=== PATIENT | female | born 1955 | race Caucasian/White ===

== ENCOUNTER 2019-11-09 11:00 | Inpatient (IN) | payer BC ==
[~2019-11-09] VITALS: Ht 170.2 cm; Wt 85.3 kg
[2019-11-11] MEDS ORDERED: LACTATED RINGERS 1,000 ML IV SCH (09:59)
[2019-11-11] MEDS ORDERED: METH500T7 PO (10:03)
[2019-11-11] MEDS ORDERED: TRAZ50TA66 PO (10:03)
[2019-11-11] MEDS ORDERED: BUPR300T94 PO (10:03)
[2019-11-11] MEDS ORDERED: HYDR-3245 PO (10:03)
[2019-11-11] MEDS ORDERED: DULO30CA2 PO (10:03)
[2019-11-11] MEDS ORDERED: ZOLP10TA PO (10:03)
[2019-11-11] MEDS ORDERED: BUPIVACAINE/PF 0.25% ONE (10:14)
[2019-11-11] MEDS ORDERED: VANCOMYCIN 1,000 MG ONE (10:15)
[2019-11-11] MEDS ORDERED: LIDOCAINE/PF 0.5% ,50ML ONE (10:15)
[2019-11-11] MEDS ORDERED: THROMBIN 5,000 UNIT VIAL TP ONE (10:15)
[2019-11-11] MEDS ORDERED: EPINEPHRINE 1 MG/ML, 1ML ONE (10:15)
[2019-11-11 10:26] VITALS: BP 124/72
[2019-11-11] MEDS ORDERED: GABAPENTIN 300 MG CAPSULE ONE ×2 (10:39)
[2019-11-11] MEDS ORDERED: ACETAMINOPHEN 500 MG TABLET ONE ×2 (10:39)
[2019-11-11] MEDS ORDERED: MIDAZOLAM 1 MG/ML, 2ML ONE (10:43)
[2019-11-11] MEDS ORDERED: ACETAMINOPHEN 325 MG TABLET PO PRN (11:30)
[2019-11-11] MEDS ORDERED: MEPERIDINE/PF 25MG/0.5ML IVPush PRN (11:30)
[2019-11-11] MEDS ORDERED: PROMETHAZINE 25 MG/ML, 1ML IV PRN (11:30)
[2019-11-11] MEDS ORDERED: hydrALAzine 20 MG/ML, 1ML IV PRN (11:30)
[2019-11-11] MEDS ORDERED: ALBUTEROL SULFATE 2.5 MG/3 ML NPPB PRN (11:30)
[2019-11-11] MEDS ORDERED: LABETALOL 5MG/ML, 20ML IV PRN (11:30)
[2019-11-11] MEDS ORDERED: DIAZEPAM 5 MG/ML, 2ML IVPush PRN (11:30)
[2019-11-11] MEDS ORDERED: KETOROLAC 30 MG/1 ML IV PRN (11:30)
[2019-11-11] MEDS ORDERED: OXYcodone 5 MG/5 ML ORAL.SOL UDC PO PRN (11:30)
[2019-11-11] MEDS ORDERED: VANCOMYCIN 1,000 MG IM ONE (12:35)
[2019-11-11] MEDS ORDERED: FENTANYL PF 250 MCG/5ML ONE (13:10)
[2019-11-11] MEDS ORDERED: NEOSTIGMINE 1 MG/ML, 10ML ONE (14:04)
[2019-11-11] MEDS ORDERED: CEFAZOLIN 1,000 MG ONE (14:04)
[2019-11-11] MEDS ORDERED: ROCURONIUM 10MG/ML,5ML ONE ×2 (14:04)
[2019-11-11] MEDS ORDERED: GLYCOPYRROLATE 0.2MG/1ML, 5ML ONE (14:04)
[2019-11-11] MEDS ORDERED: SUCCINYLCHOLINE 20 MG/ML, 10ML ONE (14:04)
[2019-11-11] MEDS ORDERED: ONDANSETRON 2MG/ML, 2ML ONE (14:04)
[2019-11-11] MEDS ORDERED: PROPOFOL 10 MG/ML, 20ML ONE (14:04)
[2019-11-11] MEDS ORDERED: DEXAMETHASONE 4 MG/ML, 1ML ONE ×2 (14:04)
[2019-11-11] MEDS ORDERED: SUGAMMADEX 200 MG/2 ML IVPush ONE (14:04)
[2019-11-11] MEDS ORDERED: FENTANYL PF 100 MCG/2ML ONE ×2 (14:18→14:41)
[2019-11-11] MEDS ORDERED: HYDROmorphone 1 MG/ML, 1ML INJ ONE (14:41)
[2019-11-11] MEDS ORDERED: OXYcodone 5 MG/5 ML ORAL.SOL UDC ONE (14:41)
[2019-11-11] MEDS: FENTANYL PF 100 MCG/2ML IV PRN ×2 (14:42→14:47)
[2019-11-11] MEDS: HYDROmorphone 2 MG/ML, 1ML IVPush PRN ×2 (14:55→15:00)
[2019-11-11 16:30] VITALS: BP 98/50
[2019-11-11] MEDS ORDERED: DIPHENHYDRAMINE 50 MG/ML, 1ML IM PRN (17:00)
[2019-11-11] MEDS ORDERED: PROMETHAZINE 25 MG/ML, 1ML IM PRN (17:00)
[2019-11-11] MEDS ORDERED: METHOCARBAMOL 1,000 MG in DEXTROSE 5% 100 ML IV ONE (17:00)
[2019-11-11] MEDS ORDERED: METHOCARBAMOL 750 MG TABLET PO SCH (17:00)
[2019-11-11] MEDS ORDERED: DIPHENHYDRAMINE 50 MG/ML, 1ML IVPush PRN (17:00)
[2019-11-11] MEDS ORDERED: METHOCARBAMOL 750 MG in DEXTROSE 5% 100 ML IV SCH (17:00)
[2019-11-11] MEDS ORDERED: MAGNESIUM HYDROXIDE 8%, 30ML UDC PO PRN (17:00)
[2019-11-11] MEDS ORDERED: ONDANSETRON 2MG/ML, 2ML IV PRN (17:00)
[2019-11-11] MEDS ORDERED: HYDROcodone/APAP 5/325 TABLET PO PRN (17:00)
[2019-11-11] MEDS ORDERED: BISACODYL 10 MG SUPP PR PRN (17:00)
[2019-11-11] MEDS ORDERED: DIPHENHYDRAMINE 25 MG CAPSULE PO PRN (17:00)
[2019-11-11] MEDS ORDERED: CEFAZOLIN PMX 1GM/50ML 50 ML IVPB SCH (18:00)
[2019-11-11] MEDS: D5%-0.9% NACL+KCL 20MEQ 1,000 ML IV SCH (18:11)
[2019-11-11 18:21] VITALS: BP 93/56
[2019-11-11] MEDS: HYDROcodone/APAP 10/325 MG TABLET PO PRN (20:12)
[2019-11-11] MEDS: TRAZODONE 100MG TABLET PO SCH (22:43)
[2019-11-11] MEDS: ZOLPIDEM 10MG TABLET PO PRN (22:44)
[2019-11-11] MEDS: CEFAZOLIN PMX 1GM/50ML 50 ML IVPB SCH (22:44)
[2019-11-11] MEDS: SENNA/DOCUSATE TABLET PO SCH (22:44)
[2019-11-11] MEDS: BUPROPION SR 150 MG TABLET PO SCH (22:46)
[2019-11-12 00:04] VITALS: BP 94/56
[2019-11-12] MEDS: HYDROcodone/APAP 10/325 MG TABLET PO PRN ×3 (00:50→09:48)
[2019-11-12] MEDS: METHOCARBAMOL 750 MG in DEXTROSE 5% 100 ML IV SCH ×3 (02:30→18:12)
[2019-11-12 04:20] VITALS: BP 93/56
[2019-11-12 05:40] LABS: BASOPHILS # (AUTO) 0.03 x10^3/uL (0-0.1); BASOPHILS % (AUTO) 0 % (0-1); EOSINOPHILS % (AUTO) 0 % (1-7); LYMPHOCYTES # (AUTO) 2.15 x10^3/uL (1-3.4); LYMPHOCYTES % (AUTO) 20 % (22-44); MD NO; MEAN CORPUSCULAR HEMOGLOBIN 25.9 pg (27.0-34.8); MEAN CORPUSCULAR HGB CONC 31.1 g/dL (32.4-35.8); MEAN CORPUSCULAR VOLUME 83.3 fL (80-100); MEAN PLATELET VOLUME 7.7 fL (7.4-10.4); MONOCYTES # (AUTO) 0.86 x10^3/uL (0.2-0.8); MONOCYTES % (AUTO) 8 % (2-9); NEUTROPHILS # (AUTO) 7.51 x10^3/uL (1.8-6.8); NEUTROPHILS % (AUTO) 71 % (42-75); PLATELET COUNT 292 x10^3/uL (130-400); RED BLOOD COUNT 2.96 x10^6/uL (3.82-5.3); RED CELL DISTRIBUTION WIDTH 16.5 % (9.6-15.2)
[2019-11-12] MEDS: CEFAZOLIN PMX 1GM/50ML 50 ML IVPB SCH (05:42)
[2019-11-12 05:45] LABS: ANION GAP 5 mmol/L (5-15); CALCIUM 7.2 mg/dL (8.5-10.1); CHLORIDE 114 mmol/L (98-107); CREATININE 0.71 mg/dL (0.55-1.02)
[2019-11-12 08:59] VITALS: BP 112/65
[2019-11-12] MEDS: DULOXETINE 30 MG CAPSULE.DR PO SCH (09:13)
[2019-11-12] MEDS: BUPROPION SR 150 MG TABLET PO SCH ×3 (09:13→21:44)
[2019-11-12] MEDS: MORPHINE SULFATE 4 MG/ML, 1ML IVPush PRN ×6 (09:16→23:28)
[2019-11-12] MEDS: SENNA/DOCUSATE TABLET PO SCH ×2 (09:16→21:44)
[2019-11-12] MEDS: D5%-0.9% NACL+KCL 20MEQ 1,000 ML IV SCH ×2 (09:17→20:00)
[2019-11-12] MEDS: OXYcodone IR 5MG TABLET PO PRN ×3 (13:25→21:44)
[2019-11-12 15:23] VITALS: BP 95/54
[2019-11-12] MEDS: CEPHALEXIN 500 MG CAPSULE PO SCH ×2 (15:28→21:44)
[2019-11-12 21:59] VITALS: BP 112/65
[2019-11-13] MEDS: TRAZODONE 100MG TABLET PO SCH ×2 (00:12→22:31)
[2019-11-13] MEDS: ZOLPIDEM 10MG TABLET PO PRN ×2 (00:12→22:30)
[2019-11-13] MEDS: METHOCARBAMOL 750 MG in DEXTROSE 5% 100 ML IV SCH ×3 (03:08→18:06)
[2019-11-13] MEDS: OXYcodone IR 5MG TABLET PO PRN ×2 (03:08→08:07)
[2019-11-13 03:19] VITALS: BP 93/52
[2019-11-13] MEDS: D5%-0.9% NACL+KCL 20MEQ 1,000 ML IV SCH ×2 (06:00→16:00)
[2019-11-13 06:17] LABS: BASOPHILS % (AUTO) 0 % (0-1); EOSINOPHILS # (AUTO) 0.11 x10^3/uL (0-0.4); EOSINOPHILS % (AUTO) 1 % (1-7); LYMPHOCYTES # (AUTO) 1.28 x10^3/uL (1-3.4); LYMPHOCYTES % (AUTO) 13 % (22-44); MD NO; MEAN CORPUSCULAR HEMOGLOBIN 26.1 pg (27.0-34.8); MEAN CORPUSCULAR HGB CONC 31.6 g/dL (32.4-35.8); MEAN CORPUSCULAR VOLUME 82.5 fL (80-100); MONOCYTES # (AUTO) 0.91 x10^3/uL (0.2-0.8); MONOCYTES % (AUTO) 9 % (2-9); NEUTROPHILS # (AUTO) 7.44 x10^3/uL (1.8-6.8); NEUTROPHILS % (AUTO) 76 % (42-75); PLATELET COUNT 287 x10^3/uL (130-400); RED BLOOD COUNT 3.01 x10^6/uL (3.82-5.3); RED CELL DISTRIBUTION WIDTH 16.6 % (9.6-15.2)
[2019-11-13 06:27] LABS: ANION GAP 5 mmol/L (5-15); CALCIUM 7.3 mg/dL (8.5-10.1); CHLORIDE 108 mmol/L (98-107); CREATININE 0.63 mg/dL (0.55-1.02)
[2019-11-13] MEDS: CEPHALEXIN 500 MG CAPSULE PO SCH ×4 (06:54→20:25)
[2019-11-13 07:02] VITALS: BP 87/49
[2019-11-13] MEDS: DULOXETINE 30 MG CAPSULE.DR PO SCH (08:06)
[2019-11-13] MEDS: SENNA/DOCUSATE TABLET PO SCH ×2 (08:06→20:26)
[2019-11-13] MEDS: BUPROPION SR 150 MG TABLET PO SCH ×2 (08:07→20:26)
[2019-11-13] MEDS: MORPHINE SULFATE 4 MG/ML, 1ML IVPush PRN ×2 (08:46→11:07)
[2019-11-13] MEDS ORDERED: BUPROPION SR 150 MG TABLET PO SCH (09:00)
[2019-11-13] MEDS: HYDROmorphone 2MG TABLET PO PRN ×3 (12:24→20:26)
[2019-11-13 12:28] VITALS: BP 132/73
[2019-11-13] MEDS: HYDROcodone/APAP 10/325 MG TABLET PO PRN ×3 (14:50→22:26)
[2019-11-13 20:05] VITALS: BP 93/53
[2019-11-14] MEDS: HYDROmorphone 2MG TABLET PO PRN ×6 (00:57→23:41)
[2019-11-14] MEDS: D5%-0.9% NACL+KCL 20MEQ 1,000 ML IV SCH ×3 (02:00→19:23)
[2019-11-14 02:55] VITALS: BP 104/63
[2019-11-14] MEDS: METHOCARBAMOL 750 MG TABLET PO SCH ×3 (02:55→19:31)
[2019-11-14] MEDS: HYDROcodone/APAP 10/325 MG TABLET PO PRN ×5 (02:56→21:55)
[2019-11-14] MEDS: CEPHALEXIN 500 MG CAPSULE PO SCH ×2 (05:04→11:25)
[2019-11-14 05:50] LABS: BASOPHILS # (AUTO) 0.06 x10^3/uL (0-0.1); BASOPHILS % (AUTO) 1 % (0-1); EOSINOPHILS # (AUTO) 0.16 x10^3/uL (0-0.4); EOSINOPHILS % (AUTO) 2 % (1-7); LYMPHOCYTES # (AUTO) 1.24 x10^3/uL (1-3.4); LYMPHOCYTES % (AUTO) 15 % (22-44); MD NO; MEAN CORPUSCULAR HEMOGLOBIN 26.6 pg (27.0-34.8); MEAN CORPUSCULAR HGB CONC 32.5 g/dL (32.4-35.8); MEAN CORPUSCULAR VOLUME 81.9 fL (80-100); MEAN PLATELET VOLUME 8.1 fL (7.4-10.4); MONOCYTES # (AUTO) 0.88 x10^3/uL (0.2-0.8); MONOCYTES % (AUTO) 11 % (2-9); NEUTROPHILS # (AUTO) 5.98 x10^3/uL (1.8-6.8); NEUTROPHILS % (AUTO) 72 % (42-75); PLATELET COUNT 280 x10^3/uL (130-400); RED BLOOD COUNT 3.04 x10^6/uL (3.82-5.3); RED CELL DISTRIBUTION WIDTH 16.7 % (9.6-15.2)
[2019-11-14 06:01] LABS: ALBUMIN 2.5 g/dL (3.4-5.0); ANION GAP 6 mmol/L (5-15); CALCIUM 7.6 mg/dL (8.5-10.1); CHLORIDE 105 mmol/L (98-107)
[2019-11-14 06:07] LABS: ALANINE AMINOTRANSFERASE 24 U/L (12-78); ALKALINE PHOSPHATASE 72 U/L (45-117); BILIRUBIN,TOTAL 0.6 mg/dL (0.2-1.0); CREATININE 0.64 mg/dL (0.55-1.02); TOTAL PROTEIN 5.7 g/dL (6.4-8.2)
[2019-11-14] MEDS: DULOXETINE 30 MG CAPSULE.DR PO SCH (07:22)
[2019-11-14] MEDS: SENNA/DOCUSATE TABLET PO SCH ×2 (07:22→21:55)
[2019-11-14] MEDS: BUPROPION SR 150 MG TABLET PO SCH ×2 (07:23→21:55)
[2019-11-14 07:50] VITALS: BP 101/62
[2019-11-14 13:19] VITALS: BP 89/53
[2019-11-14 18:42] VITALS: BP 110/48
[2019-11-14] MEDS: TRAZODONE 100MG TABLET PO SCH (21:55)
[2019-11-14] MEDS: ZOLPIDEM 10MG TABLET PO PRN (21:59)
[2019-11-15 02:08] VITALS: BP 96/61
[2019-11-15] MEDS: HYDROcodone/APAP 10/325 MG TABLET PO PRN ×4 (02:12→13:50)
[2019-11-15] MEDS: METHOCARBAMOL 750 MG TABLET PO SCH ×2 (04:38→11:44)
[2019-11-15] MEDS: HYDROmorphone 2MG TABLET PO PRN ×3 (04:38→12:47)
[2019-11-15 07:57] VITALS: BP 96/60
[2019-11-15] MEDS: BUPROPION SR 150 MG TABLET PO SCH (08:40)
[2019-11-15] MEDS: DULOXETINE 30 MG CAPSULE.DR PO SCH (08:40)
[2019-11-15] MEDS: SENNA/DOCUSATE TABLET PO SCH (08:40)
[2019-11-15] MEDS ORDERED: HYDR-36 PO (12:26)
[2019-11-15] MEDS ORDERED: METH750T2 PO (12:27)
== END 2019-11-15 13:50 | disposition home or self-care (01) | DRG 460 ==
LOC: ORIP 11-11 08:45 → 4NE 11-11 16:09
PROVIDERS: ADMIT Orthopaedic Surgery Orthopaedic Surgery of the Spine; ATTEND Orthopaedic Surgery Orthopaedic Surgery of the Spine
PROC: 01NB0ZZ Release Lumbar Nerve, Open Approach (ICD-10-PCS; 2019-11-11)
PROC: 0SG10K1 Fusion of 2 or more Lumbar Vertebral Joints with Nonautologous Tissue Substitute, Posterior Approach, Posterior Column, Open Approach (ICD-10-PCS; principal; 2019-11-11 10:30)
DX: M48.061 Spinal stenosis, lumbar region without neurogenic claudication (principal); M43.16 Spondylolisthesis, lumbar region; M54.16 Radiculopathy, lumbar region; Z79.891 Long term (current) use of opiate analgesic
CPT/HCPCS: 36415; 72100; 80048; 80053; 85025; 86850; 86900; G0378; J0171; J0690; J1100; J1170; J2001; J2250; J2405; J2704; J2710; J3010; J3370; J3490; J0330; J2270; J2800; J3480; J7120